=== PATIENT | female | born 1975 | race Two or more races ===

== ENCOUNTER 2017-12-06 15:59 | Emergency (ER) | payer OTHER ==
[~2017-12-06] VITALS: Ht 167.6 cm; Wt 123.4 kg
[2017-12-06 16:45] LABS: Urine Amorphous Crystal FEW /hpf (None Seen); Urine Bacteria FEW /hpf (None Seen); Urine Blood Negative /uL (Negative); Urine Mucus FEW (None Seen); Urine Specific Gravity 1.005 (1.001-1.035); Urine WBC 3 /hpf (0 - 5)
[2017-12-06] MEDS ORDERED: SODIUM CHLORIDE 0.9% 1,000 ML IV ONE (16:52)
[2017-12-06] MEDS ORDERED: KETOROLAC TROMETH 30 MG/ML 1ML VIAL IV ONE (17:00)
[2017-12-06] MEDS ORDERED: METOCLOPRAMIDE HCL 5MG/ml INJ 2ml VIAL IV ONE (17:00)
[2017-12-06 17:14] LABS: Basophils # (auto) 0.1 uL; Basophils % (auto) 0.6 % (0.0-2.0); Eosinophils # (auto) 0 uL; Eosinophils % (auto) 0.4 % (0.0-7.0); Hematocrit 31.7 % (36.0-46.0); Hemoglobin 10.2 g/dL (12.2-16.2); Lymphocytes # (auto) 1.8 uL; Lymphocytes % (auto) 18.8 % (10.0-50.0); Mean Corpuscular Hemoglobin 23.8 pg (28.0-32.0); Mean Corpuscular Hgb Conc. 32.3 g/dL (32.0-36.0); Mean Corpuscular Volume 73.8 fL (80.0-100.0); Monocytes # (auto) 0.5 uL; Monocytes % (auto) 5.7 % (0.0-12.0); Neutrophils # (auto) 7.1 uL; Neutrophils % (auto) 74.5 % (37.0-80.0); Platelet Count (auto) 398 10^3/uL (140-450); Red Cell Distribution Width 17.9 % (11.8-14.3); White Blood Cell 9.5 10^3/uL (4.4-10.8)
[2017-12-06 17:30] LABS: Albumin 3.4 g/dL (3.4-5.0); BUN/Creatinine Ratio 14.3; Calcium 8.5 mg/dL (8.5-10.1); Potassium 3.5 mmol/L (3.5-5.1)
[2017-12-06 17:33] LABS: Bilirubin, Total 0.4 mg/dL (0.2-1.0); Total Protein 7.9 g/dL (6.4-8.2)
[2017-12-06 17:35] LABS: Lipase 130 U/L (73-393); Magnesium 2.3 mg/dL (1.6-2.6)
[2017-12-06 17:38] LABS: Beta HCG, Quantitative < 1 mlU/mL (1-3); Thyroid Stimulating Hormone 0.53 uIU/mL (0.358-3.74)
[2017-12-06 18:35] VITALS: BP 144/99
== END 2017-12-06 18:53 | disposition home or self-care (01) ==
LOC: ER 16:05
DX: K52.89 Other specified noninfective gastroenteritis and colitis (principal); N39.0 Urinary tract infection, site not specified; D50.9 Iron deficiency anemia, unspecified; I10 Essential (primary) hypertension; E66.01 Morbid (severe) obesity due to excess calories; Z68.41 Body mass index [BMI] 40.0-44.9, adult; Z88.5 Allergy status to narcotic agent; Z90.49 Acquired absence of other specified parts of digestive tract
CPT/HCPCS: 36415; 71046; 74176; 80053; 81001; 81025; 83690; 83735; 84443; 84484; 84702; 85025; 93005; 96361; 96374; 96375; 99285; J1885; J2765; J7030